=== PATIENT | male | born 1950 | race Caucasian/White ===

== ENCOUNTER 2021-01-02 02:45 | Emergency (ER) | payer MEDICARE ==
[~2021-01-02] VITALS: Ht 175.3 cm; Wt 88.5 kg
[~2021-01-02 02:45] MED LIST: ASPIR 8181 MG PO; AUGMENTIN 500-1 EACH PO; BUMETANIDE2 MG PO; BUMEX1 MG PO; COREG12.5 MG PO; COZAAR50 MG PO; DULCOLAX5 MG PO; FLONASE ALLER15.8 ML; HYDRALAZINE HCL50 MG PO; K-DUR20 MEQ PO; LASIX20 MG PO; LEVEMIR VI100 UNITS/ SC; NORVASC5 MG PO; NOVOLOG VI100 UNIT/1 SC; OS-CAL500 MG PO; PROAIR HFA8.5 GM INH; PROBIOTIC1 EAC1 PO; SYNTHROID125 MCG PO; TESSALON PERLE100 MG PO; ZOCOR40 MG PO; ZPAK PO
[2021-01-02 03:39] LABS: BASOPHIL 0.4 % (0-2); EOSINOPHIL 3.6 % (0-7); HCT 28.9 % (42.0-52.0); HGB 9.3 g/dl (13.2-18.0); LYMPHOCYTE 4.2 % (15-48); MCH 30.4 pg (25.0-31.0); MCHC 32.2 g/dL (32.0-36.0); MCV 94.4 fL (78.0-100.0); MONOCYTE 8.9 % (0-12); MPV 11.6 fL (6.0-9.5); NEUTROPHIL 82.4 % (41-80); NRBC 0; PLT 204 K/uL (150-400); RBC 3.06 M/uL (4.70-6.00); RDW 14.1 % (11.5-14.0); WBC 7.9 K/uL (4.0-10.5)
[2021-01-02 03:49] LABS: ALBUMIN 3.1 g/dL (3.4-5.0); BILIRUBIN - TOTAL 0.5 mg/dL (0.2-1.0); CREATININE 4.42 mg/dL (0.67-1.17); GLOBULIN (CALCULATION) 4.1 g/dL; POTASSIUM 4.7 mmol/L (3.5-5.1); TOTAL PROTEIN 7.2 g/dL (6.4-8.2)
[2021-01-02 04:32] LABS: CORONAVIRUS 2019 SARS-COV-2 NEGATIVE (NEGATIVE); INFLUENZA A NAA NEGATIVE (NEGATIVE)
[2021-01-02 07:48] LABS: CREATININE 4.44 mg/dL (0.67-1.17); POTASSIUM 4.3 mmol/L (3.5-5.1)
[2021-01-02 10:17] LABS: INR 1.35 (0.9-1.2); PTT 30.4 SECONDS (24.4-34.7)
[2021-01-02 10:21] LABS: BILIRUBIN - TOTAL 0.5 mg/dL (0.2-1.0); CREATININE 4.32 mg/dL (0.67-1.17); POTASSIUM 4.3 mmol/L (3.5-5.1)
== END 2021-01-02 11:43 | disposition other institution (70) ==
LOC: FER 02:45
PROVIDERS: Emergency Medicine; Internal Medicine
DX: J96.01 Acute respiratory failure with hypoxia (principal); E11.22 Type 2 diabetes mellitus with diabetic chronic kidney disease; I13.0 Hypertensive heart and chronic kidney disease with heart failure and stage 1 through stage 4 chronic kidney disease, or unspecified chronic kidney disease; N17.9 Acute kidney failure, unspecified; N18.9 Chronic kidney disease, unspecified; I50.9 Heart failure, unspecified; I25.10 Atherosclerotic heart disease of native coronary artery without angina pectoris; Z20.822 Contact with and (suspected) exposure to COVID-19
CPT/HCPCS: 36415; 36600; 71045; 80048; 80053; 82803; 83880; 84145; 84484; 85025; 85610; 85730; 93005; 94762; J1644; U0002